=== PATIENT | male | born 1975 | race Caucasian/White ===

== ENCOUNTER → 2024-06-10 14:47 | Outpatient (BNVA) | payer BC, MEDICAID, SELFPAY | PROVIDERS: PCP Family Medicine; Visit Provider Nurse Practitioner | DX: Z12.5 Encounter for screening for malignant neoplasm of prostate (principal); I10 Essential (primary) hypertension | CPT/HCPCS: 80053; 80061; 84443; 85025; G0103 ==

== ENCOUNTER → 2024-06-19 14:24 | Outpatient (BNVA) | payer BC, MEDICAID, SELFPAY | PROVIDERS: PCP Family Medicine; Referring Provider Nurse Practitioner; Visit Provider Nurse Practitioner | DX: R74.8 Abnormal levels of other serum enzymes (principal) | CPT/HCPCS: 80074 ==

== ENCOUNTER 2024-07-09 09:36 | Outpatient (CLI) | payer BC, MEDICAID, SELFPAY ==
--- NOTE | 2024-07-09 09:45 | US_ITS ---
WS: [id number] Complete ABDOMINAL ULTRASOUND HISTORY: K29.00 - Acute gastritis without bleeding COMPARISON: None available. Liver: 20.3 cm in length. Liver is moderately enlarged. Surface of the liver is irregular suggesting hepatocellular disease and possible cirrhosis. No mass. Portal Vein: Normal hepatopetal flow with monophasic waveform. Gallbladder: Normally distended with sludge. No stones identified. No gallbladder wall thickening or edema. CBD: 0.5 cm Pancreas: Not visualized. Right kidney: 10.5 cm x 5.0 x 4.1 cm. Cortex:0.9 cm. Normal size and echogenicity. No hydronephrosis or mass. Left kidney: 9.8 cm x 4.7 cm x 4.3 cm. Cortex: 1.2 cm. Normal size and echogenicity. No hydronephrosis or mass. Spleen: 12.2 cm. Normal size and echogenicity. Aorta and IVC: Unremarkable abdominal aorta and IVC. Small amount of ascites in the upper quadrants. US/US abdomen complete* [id number] Impression: 1. Small amount of gallbladder sludge. No evidence for cholelithiasis or acute cholecystitis. 2. No bile duct dilatation. 3. Moderate hepatomegaly. Surface changes of the liver suggesting cirrhosis al though the liver is not shrunken. 4. No renal obstruction. 5. Small amount of ascites.
== END 2024-07-09 09:37 | disposition home or self-care (01) ==
LOC: RAD 09:37
PROVIDERS: PCP Family Medicine; Visit Provider Nurse Practitioner
DX: K29.00 Acute gastritis without bleeding (principal); R74.8 Abnormal levels of other serum enzymes; R18.8 Other ascites
CPT/HCPCS: 76700

== ENCOUNTER → 2024-08-21 11:30 | Outpatient (BNVA) | payer BC, MEDICAID, SELFPAY | PROVIDERS: PCP Nurse Practitioner; Visit Provider Nurse Practitioner | DX: I10 Essential (primary) hypertension (principal); R33.9 Retention of urine, unspecified; R60.9 Edema, unspecified | CPT/HCPCS: 80053; 83735; 83880 ==

== ENCOUNTER → 2024-09-02 13:12 | Outpatient (BNVA) | payer BC, MEDICAID, SELFPAY | PROVIDERS: PCP Nurse Practitioner; Visit Provider Nurse Practitioner | DX: R60.9 Edema, unspecified (principal); R33.9 Retention of urine, unspecified | CPT/HCPCS: 80053; 83880 ==

== ENCOUNTER 2024-09-23 11:39 | Outpatient (CLI) | payer BC, MEDICAID, SELFPAY ==
--- NOTE | 2024-09-23 12:00 | USCV_ITS ---
Urban Lucas Age: 48 Gender: M : 1975 Exam Date: 09/23/2024 11:53 Ordering Phys: Tami ReillyP MULESER Technologist: Exam Location: [facility] [place] Indication: sob BP: 130 / 80 HR: 76 Rhythm: Sinus Technical Quality: Adequate MEASUREMENTS (Male / Female) Normal Values 2D ECHO LV Diastolic Diameter PLAX 4.0 cm 4.2 - 5.9 / 3.9 - 5.3 cm IVS Diastolic Thickness 1.2 cm 0.6 - 1.0 / 0.6 - 0.9 cm IVS Systolic Thickness 1.4 cm LVPW Diastolic Thickness 1.7 cm 0.6 - 1.0 / 0.6 - 0.9 cm LVPW Systolic Thickness 1.5 cm LV Ejection Fraction 2D Teich 67.8 % LV Ejection Fraction MOD 4C 69.3 % LV Ejection Fraction MOD 2C 68.0 % LV Ejection Fraction 2C AL 67.9 % RA Systolic Volume 4C AL 38.5 ml RA Systolic Volume 4C MOD 36.9 ml M-MODE LA Ao Ratio MM 1.0 AV Cusp Separation MM 2.1 cm DOPPLER AV Peak Velocity 141.0 cm/s LVOT Peak Velocity 119.0 cm/s MV Peak Velocity 97.0 cm/s MV Area PHT 4.0 cm squared Mitral E to A Ratio 1.1 TV Peak Velocity 211.0 cm/s TR Peak Velocity 217.0 cm/s TR Peak Gradient 18.8 mmHg TV Peak E Velocity 84.0 cm/s PV Peak Velocity 120.0 cm/s FINDINGS Left Ventricle Normal left ventricular size and systolic function, EF 68%. No regional wall motion abnormalities. Right Ventricle The right ventricle is normal in size and function. Right Atrium The right atrium is normal in size. Left Atrium The left atrium is normal in size. Mitral Valve Trace mitral valve regurgitation. Aortic Valve No significant abnormalities noted Tricuspid Valve Trace tricuspid valve regurgitation. Estimated pulmonary artery peak systolic pressure 22 mmHg Pulmonic Valve Trace pulmonary valve regurgitation. Pericardium Normal pericardium without effusion. Aorta Normal ascending aorta dimension. IVC The inferior vena cava appears normal. CONCLUSIONS Normal left ventricular size and systolic function, EF 68%. No regional wall motion abnormalities. Trace tricuspid valve regurgitation. Estimated pulmonary artery peak systolic pressure 22 mmHg. Trace pulmonary valve regurgitation. Normal cardiac chamber sizes. No intracardiac shunts by color-flow Doppler examination. There is no pericardial effusion. No similar previous studies are available for comparison Dr Tarsha Porter MD [facility] (Electronically Signed) Final Date: 28 September 2024 18:55 S
== END 2024-09-23 11:40 | disposition home or self-care (01) ==
LOC: RAD 11:39
PROVIDERS: PCP Nurse Practitioner; Visit Provider Nurse Practitioner
DX: R60.9 Edema, unspecified (principal)
CPT/HCPCS: 93306

== ENCOUNTER 2024-10-13 18:19 | Emergency (ER) | payer BC, MEDICAID, SELFPAY ==
[2024-10-13 18:32] VITALS: BP 138/96; PULSE 72; TEMP 36.4; O2SAT 100; BMI 25.3
--- NOTE | 2024-10-13 18:37 | XRR_ITS ---
PROCEDURE INFORMATION: Exam: XR Left Shoulder Exam date and time: 10/13/2024 6:49 PM Age: 48 years old Clinical indication: Injury or trauma; Fall; Blunt trauma (contusions or hematomas); Shoulder; Left TECHNIQUE: Imaging protocol: Radiologic exam of the left shoulder. Views: 2 or more views. COMPARISON: No relevant prior studies available. FINDINGS: Bones/joints: Acute comminuted minimally displaced fracture of the proximal humerus just below the surgical neck. No dislocation. Lungs: Visualized lungs are clear. Soft tissues: Normal. XR/XR shoulder LT min 2V* [id number] IMPRESSION: Acute comminuted fracture of the proximal humerus.
--- NOTE | 2024-10-13 18:55 | ED_ITS ---
HPI - Extremity Problem General: Chief complaint: Extremity Injury, Upper Stated complaint: Fell Shoulder Pain Time Seen by Provider: 10/13/24 18:38 Source: patient Mode of arrival: ambulatory Limitations: no limitations History of Present Illness: 48-year-old male states that he had a fa ll day states he had landed on his left shoulder has pain to his left shoulder he rates a 9 out of 10 pain is much worse with movement. He denies hitting his head denies any loss of consciousness. Associated symptoms: Deny chest pain, fever(s) or rash Related Data Home Medications Medication Instructions Recorded Confirmed furosemide 40 mg tablet (Lasix) 40 mg PO DAILY 09/18/24 09/18/24 Previous Rx's Medication Instructions Recorded lisinopril 10 mg tablet 10 mg PO DAILY #30 tabs 06/10/24 buspirone 5 mg tablet 5 mg PO BID PRN anxiety #30 tabs 07/18/24 hydrocodone 5 mg-acetaminophen 325 1 tab PO Q6H PRN pain #14 tabs 10/13/24 mg tablet Allergies Allergy/AdvReac Type Severity Reaction Status Date / Time No Known Allergies Allergy Verified 10/13/24 18:36 Review of Systems Const: Denies: fever(s), chills, body aches or change in appetite ENMT: Denies: throat pain or dental pain Card: Denies: chest pain Resp: Denies: dyspnea GI: Denies: abdominal pain, nausea, vomiting or diarrhea Musc: Reports: extremity pain; Denies: neck pain or back pain Skin/Breast: Denies: rash Neuro: Denies: headache(s) PFSH ED PFSH: Medical History Ascites of liver Social anxiety disorder Gastritis Hypertension NAYLA (generalized anxiety disorder) Social History Smoking and tobacco/nicotine status: current every day tobacco/nicotine user Alcohol intake: current Alcohol intake frequency: 0-2 Drinks per Day Substance/Drug Use: never Physical Exam Const: COMMON NORMALS: no acute distress, patient oriented x3 and healthy appearing HENMT: COMMON NORMALS: normocephalic and atraumatic HEAD & SCALP: normocephalic and atraumatic Eye: COMMON NORMALS: Equal, round and reactive pupils present and EOMs intact bilaterally PUPIL: Yes Equal, round and reactive pupils present Neck/C-Spine: COMMON NORMALS: full ROM and supple GENERAL: Yes normal visual inspection CERVICAL SPINE: No Cervical spine tenderness Chest: COMMONS NORMALS: normal inspection of the chest Resp: COMMON NORMALS: normal respiratory effort, No retractions, No use of accessory muscles and clear to auscultation bilaterally AUSCULTATION: clear to auscultation bilaterally Cardio: COMMON NORMALS: regular rate, regular rhythm and No murmurs present (Cardio) RATE: regular rate RHYTHM: regular rhythm Extremity: COMMON NORMALS: full ROM NARRATIVE EXTREMITY EXAM: Tenderness noted to left proximal humerus distal pulses intact no signs of dislocation Neuro: COMMON NORMALS: patient oriented x3, moves all extremities and no focal motor deficits Psych: COMMON NORMALS: mental status grossly normal, Normal thought process present and cooperative THOUGHT PROCESS: Normal thought process present Skin: COMMON NORMALS: no rashes or lesions noted and no wounds GENERAL SKIN EXAM: no rashes or lesions noted Course Vital Signs: Vital signs: Vital Signs Temperature 97.6 F 10/13/24 18:32 Pulse Rate 72 10/13/24 18:32 Blood Pressure 138/96 10/13/24 18:32 Pulse Oximetry 100 10/13/24 18:32 Oxygen Delivery Me thod Room Air 10/13/24 18:32 MDM - Extremity (Nontraumatic) Medical Decision Making Patient presents here with a proximal humerus fracture we will place him in a sling will get him follow-up orthopedics will prescribe pain medicine he has no other injuries noted. Medical Records I reviewed the patient's medical records. XR interpretation done by ED provider, pending radiology final review ED provider radiology interpretation(s): X-ray left humerus proximal humerus fracture no dislocation Discharge Plan Discharge Patient Disposition: Home Clinical Impression: Fracture of humerus Condition: Stable Prescriptions: New hydrocodone-acetaminophen 5-325 mg tablet 1 tab PO Q6H PRN (Reason: pain) Qty: 14 0RF No Action lisinopril 10 mg tablet 10 mg PO DAILY Qty: 30 3RF buspirone 5 mg tablet 5 mg PO BID PRN (Reason: anxiety) Qty: 30 0RF furosemide [Lasix] 40 mg tablet 40 mg PO DAILY Discharge Orders: Discharge ED (Routine); Ordered 10/13/24 Ordered By: Adrienne Villarreal Referrals: Tami Reilly FNP [Primary Care Provider] - Discharge Diet: Advance as tolerated Discharge Activity: Resume usual activity Patient Instructions: Arm Fracture in Adults (ED), Opioid Safety Coding Level of Care Code ED System Configuration Specialist for Neris Morris
[2024-10-13] MEDS: HYDROcodone-acetaminophen 7.5-325 mg Tablet 1 TAB PO (19:13)
[2024-10-13] MEDS: HYDROcodone-acetaminophen 5-325 mg Tablet 2 TAB PO (19:43)
--- NOTE | 2024-10-13 19:43 | PC.NURSE ---
patient would not tolerate monitor and stated he could not/would not move his (non injured) arm.
--- NOTE | 2024-10-14 07:16 | DCPLANNER ---
Message sent to ortho for a left humerus fx. from fall
== END 2024-10-13 19:46 | disposition home or self-care (01) ==
PROVIDERS: Emergency Provider Emergency Medicine; PCP Nurse Practitioner
DX: S42.202A Unspecified fracture of upper end of left humerus, initial encounter for closed fracture (principal); Z72.0 Tobacco use; I10 Essential (primary) hypertension; W19.XXXA Unspecified fall, initial encounter
CPT/HCPCS: 73030; 99283

== ENCOUNTER → 2024-10-16 15:27 | Outpatient (BNVA) | payer BC, MEDICAID, SELFPAY | PROVIDERS: PCP Nurse Practitioner; Visit Provider Orthopaedic Surgery | DX: S42.202A Unspecified fracture of upper end of left humerus, initial encounter for closed fracture (principal); W19.XXXA Unspecified fall, initial encounter | CPT/HCPCS: 73060 ==

== ENCOUNTER → 2024-10-22 12:36 | Outpatient (BNVA) | payer BC, MEDICAID, SELFPAY | PROVIDERS: PCP Nurse Practitioner; Visit Provider Internal Medicine | DX: R07.9 Chest pain, unspecified (principal) | CPT/HCPCS: 93005 ==

== ENCOUNTER → 2024-10-23 13:05 | Outpatient (BNVA) | payer BC, MEDICAID, SELFPAY | PROVIDERS: PCP Nurse Practitioner; Visit Provider Orthopaedic Surgery | DX: M25.512 Pain in left shoulder (principal) | CPT/HCPCS: 73030; 73060; 93005 ==

== ENCOUNTER → 2024-11-13 12:49 | Outpatient (BNVA) | payer BC, MEDICAID, SELFPAY | PROVIDERS: PCP Nurse Practitioner; Visit Provider Orthopaedic Surgery | DX: S42.292D Other displaced fracture of upper end of left humerus, subsequent encounter for fracture with routine healing (principal); X58.XXXD Exposure to other specified factors, subsequent encounter | CPT/HCPCS: 73030 ==

== ENCOUNTER → 2024-12-11 13:07 | Outpatient (BNVA) | payer BC, MEDICAID, SELFPAY | PROVIDERS: PCP Nurse Practitioner; Visit Provider Orthopaedic Surgery | DX: S42.292D Other displaced fracture of upper end of left humerus, subsequent encounter for fracture with routine healing (principal); X58.XXXD Exposure to other specified factors, subsequent encounter | CPT/HCPCS: 73030 ==

== ENCOUNTER → 2025-01-20 14:07 | Outpatient (BNVA) | payer BC, MEDICAID, SELFPAY | PROVIDERS: PCP Nurse Practitioner; Visit Provider Orthopaedic Surgery | DX: S42.292D Other displaced fracture of upper end of left humerus, subsequent encounter for fracture with routine healing (principal); X58.XXXD Exposure to other specified factors, subsequent encounter | CPT/HCPCS: 73030 ==

== ENCOUNTER 2025-01-25 00:07 | Emergency (ER) | payer BC, MEDICAID, SELFPAY ==
[2025-01-25 00:11] VITALS: BP 147/93; PULSE 98; RESP 16; TEMP 36.6; O2SAT 98; BMI 24.0
--- NOTE | 2025-01-25 00:31 | CTR_ITS ---
PROCEDURE INFORMATION: Exam: CT Chest With Contrast; Diagnostic Exam date and time: 01/25/2025 12:58 AM Age: 49 years old Clinical indication: Injury or trauma; Abdominal wall; Blunt trauma (contusions or hematomas); Ground level fall. Patient fell against a recliner then onto floor. C/O neck and left abd wall pain. Contusion with hematoma to lateral aspect of lower left abd wall. Patient has known left humeral surgical neck fracture. ; Additional info: Fall right chest and abd pain TECHNIQUE: Imaging protocol: Diagnostic computed tomography of the chest with contrast. Radiation optimization: All CT scans at this facility use at least one of these dose optimization techniques: automated exposure control; mA and/or kV adjustment per patient size (includes targeted exams where dose is matched to clinical indication); or iterative reconstruction. Contrast material: OMNI 350; Contrast volume: 100 ml; Contrast route: INTRAVENOUS (IV); COMPARISON: CT cervical spin wo con* [id number] 01/25/2025 12:56 AM RADIATION DOSE METRICS: Total DLP (mGy-cm): 2677.43 FINDINGS: Lungs: Unremarkable. No consolidation. No masses. Pleural spaces: Unremarkable. No pneumothorax. No pleural effusion. Heart: Unremarkable. No cardiomegaly. No pericardial effusion. Coronary arteries: Coronary artery atherosclerotic calcification. Lymph nodes: Unremarkable. No enlarged lymph nodes. Vasculature: Unremarkable. No aortic aneurysm. Bones/joints: Left humeral neck fracture with surrounding callus formation, likely chronic Soft tissues: See Bones/joints finding. PROCEDURE INFORMATION: Exam: CT Abdomen And Pelvis With Contrast Exam date and time: 01/25/2025 12:58 AM Age: 49 years old Clinical indication: Injury or trauma; Abdominal wall; Blunt trauma (contusions or hematomas); Ground level fall. Patient fell against a recliner then onto floor. C/O neck and left abd wall pain. Contusion with hematoma to lateral aspect of lower left abd wall. Patient has known left humeral surgical neck fracture. ; Additional info: Fall right chest and abd pain TECHNIQUE: Imaging protocol: Computed tomography of the abdomen and pelvis with contrast. Radiation optimization: All CT scans at this facility use at least one of these dose optimization techniques: automated exposure control; mA and/or kV adjustment per patient size (includes targeted exams where dose is matched to clinical indication); or iterative reconstruction. Contrast material: OMNI 350; Contrast volume: 100 ml; Contrast route: INTRAVENOUS (IV); COMPARISON: US abdomen complete* [id number] 07/09/2024 10:04 AM RADIATION DOSE METRICS: Total DLP (mGy-cm): 2677.43 FINDINGS: Liver: Normal. No mass. Gallbladder and biliary ducts: Normal. No calcified stones. No ductal dilation. Pancreas: Normal. No ductal dilation. Spleen: Normal. No splenomegaly. Adrenal glands: Normal. No mass. Kidneys and ureters: Normal. No hydronephrosis. Stomach and bowel: Unremarkable. No obstruction. No mucosal thickening. Appendix: No evidence of appendicitis. Intraperitoneal space: Unremarkable. No free air. No significant fluid collection. Vasculature: Unremarkable. No abdominal aortic aneurysm. Lymph nodes: Unremarkable. No enlarged lymph nodes. Urinary bladder: Unremarkable as visualized. Reproductive: Unremarkable as visualized. Bones/joints: Unremarkable. No acute fracture. Soft tissues: 5.3 cm subcutaneous hematoma is seen over the left lateral pelvis with associated subcutaneous edema. CT/CT chest abdpel w/*[id number] IMPRESSION: 1. Left humeral neck fracture with surrounding callus formation, likely chronic 2. Coronary artery atherosclerotic calcification. IMPRESSION: 5.3 cm subcutaneous hematoma is seen over the left lateral pelvis with associated subcutaneous edema.
--- NOTE | 2025-01-25 00:31 | CTR_ITS ---
PROCEDURE INFORMATION: Exam: CT Cervical Spine Without Contrast Exam date and time: 01/25/2025 12:56 AM Age: 49 years old Clinical indication: Injury or trauma; Blunt trauma; Ground level fall. Patient fell against a recliner then onto floor. C/O neck and left abd wall pain. Contusion with hematoma to lateral aspect of lower left abd wall. Patient has known left humeral surgical neck fracture. ; Additional info: Fall neck pain TECHNIQUE: Imaging protocol: Computed tomography of the cervical spine without contrast. Radiation optimization: All CT scans at this facility use at least one of these dose optimization techniques: automated exposure control; mA and/or kV adjustment per patient size (includes targeted exams where dose is matched to clinical indication); or iterative reconstruction. COMPARISON: CT head wo con* [id number] 01/25/2025 12:53 AM RADIATION DOSE METRICS: Total DLP (mGy-cm): 294.47 FINDINGS: Bones: Craniocervical and facet alignment is preserved. Vertebral body heights are maintained. No acute fracture. Small disc osteophyte complexes at C4-C5, C5-C6, and C6-C7. At least moderate spinal canal narrowing at C5-C6 and mild-moderate spinal canal narrowing at C4-C5. There is also severe neural foraminal stenosis on the right at C5-C6. Lungs: Biapical pleural-parenchymal scarring and mild paraseptal emphysematous change. Soft tissues: Unremarkable. CT/CT cervical spin wo con* [id number] IMPRESSION: No acute fracture or traumatic malalignment.
--- NOTE | 2025-01-25 00:31 | CTR_ITS ---
PROCEDURE INFORMATION: Exam: CT Head Without Contrast Exam date and time: 01/25/2025 12:53 AM Age: 49 years old Clinical indication: Injury or trauma; Blunt trauma (contusions or hematomas); Ground level fall. Patient fell against a recliner then onto floor. C/O neck and left abd wall pain. Contusion with hematoma to lateral aspect of lower left abd wall. Patient has known left humeral surgical neck fracture. ; Additional info: Fall head inj TECHNIQUE: Imaging protocol: Computed tomography of the head without contrast. Radiation optimization: All CT scans at this facility use at least one of these dose optimization techniques: automated exposure control; mA and/or kV adjustment per patient size (includes targeted exams where dose is matched to clinical indication); or iterative reconstruction. COMPARISON: No relevant prior studies available. RADIATION DOSE METRICS: Total DLP (mGy-cm): 972.54 FINDINGS: Brain: No acute intracranial hemorrhage. No territorial region of loss of harris-white differentiation. No extra-axial collection. No mass effect or midline shift. Cerebral ventricles: No acute hydrocephalus. Paranasal sinuses: Visualized sinuses are well-aerated. No fluid levels. Mastoid air cells: Visualized mastoid air cells are well aerated. Orbital cavities: No acute abnormality of the visualized orbits. Bones: No acute calvarial fracture. Soft tissues: No acute abnormality. CT/CT head wo con* [id number] IMPRESSION: No acute intracranial hemorrhage or acute calvarial fracture.
[2025-01-25 00:57] LABS: Basophils # 0.1 10^3/uL (0.0-0.1); Eosinophils # 0.1 10^3/uL (0.0-0.8); Eosinophils % 1.3 %; Hematocrit 39.5 % (37-53); Lymphocytes # 1.5 10^3/uL (0.8-4.8); Lymphocytes % 29.4 %; Mean Corpuscular HGB Conc 34.2 g/dL (30-55); Mean Corpuscular Hemoglobin 30.6 pg (27-33); Mean Corpuscular Volume 89.6 fl (82-101); Mean Platelet Volume 8.7 fL (7.4-10.4); Monocytes # 0.5 10^3/uL (0.2-0.9); Monocytes % 9.2 %; Neutrophils # 3.07 10^3/uL (1.8-7.7); Neutrophils % 58.9 %; Nucleated Red Blood Cells % 0 %; Platelet Count 157 10^3/cmm (157-399); Red Blood Count 4.41 10^6/uL (3.85-5.65); Red Cell Distribution Width 17.9 % (12.1-15.1); White Blood Count 5.21 10^3/uL (3.29-11.43)
[2025-01-25] MEDS: iohexol 350 mg/mL 500 mL Btl (per mL) IV (01:01)
[2025-01-25 01:09] LABS: INR 1.05 (0.8-1.2)
[2025-01-25 01:10] LABS: Partial Thromboplastin Time 30.1 SECONDS (23.9-36.7)
[2025-01-25 01:18] LABS: Alanine Aminotransferase 37 U/L (0-41); Albumin Level 4.2 g/dL (3.5-5.2); Alcohol Level 162 mg/dL (0-10); Alkaline Phosphatase 114 U/L (40-130); Anion Gap 18.8 (5-19); Aspartate Amino Transferase 79 U/L (0-40); Blood Urea Nitrogen 15 mg/dL (6-20); Calcium 8.8 mg/dL (8.5-10.5); Carbon Dioxide 22 mmol/L (22-29); Chloride 101 mmol/L (98-107); Creatine Phosphokinase 109 U/L (39-308); Creatinine Clr Calc Pharmacy 125.6605; Globulin 2.6 g/dL (1.3-4.6); Glomerular Filtration Rate 103.2 mL/min (90-130); Glucose 150 mg/dL (65-115); Lactic Sepsis W/Reflex 4.2 mmol/L (0.5-2.2); Osmolality Calculated 290 mOsm/kg (285-295); Potassium 3.8 mmol/L (3.5-5.1); Sodium 138 mmol/L (136-145); Total Bilirubin 0.7 mg/dL (0.15-1.2); Total Protein 6.8 g/dL (6.6-8.7)
--- NOTE | 2025-01-25 01:44 | ED_ITS ---
HPI - Abdominal Pain 2 General: Chief Complaint: Abdominal Pain Stated Complaint: fall L shoulder, & large swollen spot on left side Time Seen by Provider: 01/25/25 00:33 History of Present Illness: 49-year-old male patient with a history of alcohol use and alcoholic liver disease. He presents with left-sided abdominal wall pain following a fall at home. He evidently fell over the side of a couch. He complains of a headache, because he hit his head, some neck pain, and left flank pain. No vomiting. No fever. Related Data Home Medications ?Medication ?Instructions ?Recorded ?Confirmed furosemide 40 mg tablet (Lasix) 40 mg PO DAILY 4 01/20/25 spironolactone 25 mg tablet 25 mg PO DAILY 10/23/24 Previous Rx's ?Medication ?Instructions ?Recorded buspirone 5 mg tablet 5 mg PO BID PRN anxiety #30 tabs 07/18/24 Compression sleeve for right arm #1 ea 10/23/24 lisinopril 10 mg tablet 10 mg PO DAILY #30 tabs 11/02 01/23 hydrocodone 10 mg-acetaminophen 1 tab PO Q12H PRN pain 10 days #20 01/20/25 325 mg tablet tabs Allergies Allergy/AdvReac Type Severity Reaction Status Date / Time No Known Allergies Allergy Verified 12/11/24 13:14 [facility] ED 2 PFSH: Medical History Ascites of liver Social anxiety disorder Gastritis Hypertension NAYLA (generalized anxiety disorder) Social History Smoking and tobacco/nicotine status: unknown if used tobacco/nicotine Alcohol intake: current Alcohol intake frequency: 0-2 Drinks per Day Substance/Drug Use: never Physical Exam 2 Const: COMMON NORMALS: no acute distress GENERAL APPEARANCE: cooperative; not ill appearing and not frail appearing HENMT: COMMON NORMALS: normocephalic, atraumatic and Normal external nose present HEAD & SCALP: normocephalic and atraumatic FACE & SINUS: normal facial exam and face symmetric NOSE: Normal external nose present Eye: COMMON NORMALS: Equal, round and reactive pupils present and EOMs intact bilaterally PUPIL: Yes Equal, round and reactive pupils present Neck/C-Spine: GENERAL: Yes trachea midline Chest: CHEST: Yes Symmetrical chest wall rise Resp: COMMON NORMALS: normal respiratory effort, No retractions, No use of accessory muscles and clear to auscultation bilaterally AUSCULTATION: clear to auscultation bilaterally Cardio: COMMON NORMALS: regular rate and regular rhythm RATE: regular rate RHYTHM: regular rhythm GI: COMMON NORMALS: Normal to inspection, nondistended, normoactive bowel sounds present OTHER: Left-sided abdominal wall hematoma. Tender to palpation. No active bleeding. Ecchymosis is present. Extremity: COMMON NORMALS: no pedal edema Neuro: BRITTNEE COMA SCALE: document GCS findings Brittnee coma scale eye opening: Spontaneous Brittnee coma scale verbal response: Orientated Brittnee coma scale motor response: Obey commands Brittnee coma scale total score: 15 S ENSORY EXAM: Yes extremities (intact) Psych: COMMON NORMALS: speech normal SPEECH: Yes normal speech Skin: COMMON NORMALS: no rashes or lesions noted GENERAL SKIN EXAM: no rashes or lesions noted Course 2 Vital Signs: Vital signs: Vital Signs Temperature 97.8 F 01/25/25 00:11 Pulse Rate 98 01/25/25 00:11 Respiratory Rate 16 01/25/25 00:11 Blood Pressure 147/93 01/25/25 00:11 Pulse Oximetry 98 01/25/25 00:11 Oxygen Delivery Me thod Room Air 01/25/25 00:11 MDM - Abdominal Pain Medical Decision Making Labs are essentially not remarkable, except for a lactic acid of 4.5, and alcohol level of 162. These are likely related. CRP is 3. Other liver enzymes are essentially not remarkable. Platelet count is normal. Head and C-spine CTs are negative. Chest CT is negative. There is a left humeral neck fracture that is old, with callus formation present. Bili CT shows a 5.3 cm subcutaneous hematoma with some associated subcutaneous edema. No active bleeding noted. No solid organ injury or internal hemorrhage. He is stable. He is allowed discharge. Lab Data 01/25/25 00:48 01/25/25 00:48 Labs/Radiology: Radiology Impressions Cervical Spine CT 01/25/25 00:31 IMPRESSION: No acute fracture or traumatic malalignment. Chest/Abdomen/Pelvis CT 01/25/25 00:31 IMPRESSION: 1. Left humeral neck fracture with surrounding callus formation, likely chronic 2. Coronary artery atherosclerotic calcification. IMPRESSION: 5.3 cm subcutaneous hematoma is seen over the left lateral pelvis with associated subcutaneous edema. Head CT 01/25/25 00:31 IMPRESSION: No acute intracranial hemorrhage or acute calvarial fracture. Laboratory Results WBC 5.21 10^3/uL (3.29-11.43) 01/25/25 00:48 RBC 4.41 10^6/uL (3.85-5.65) 01/25/25 00:48 Hgb 13.50 g/dL (11.27-16.99) 01/25/25 00:48 Hct 39.5 % (37-53) 01/25/25 00:48 MCV 89.6 fl (82-101) 01/25/25 00:48 MCH 30.6 pg (27-33) 01/25/25 00:48 MCHC 34.2 g/dL (30-55) 01/25/25 00:48 RDW 17.9 % (12.1-15.1) H 01/25/25 00:48 Plt Count 157 10^3/cmm (157-399) 01/25/25 00:48 MPV 8.7 fL (7.4-10.4) 01/25/25 00:48 Neut % (Auto) 58.9 % 01/25/25 00:48 Lymph % (Auto) 29.4 % 01/25/25 00:48 Mcdonald % (Auto) 9.2 % 01/25/25 00:48 Eos % (Auto) 1.3 % 01/25/25 00:48 Baso % (Auto) 1.0 % 01/25/25 00:48 Neut # (Auto) 3.07 10^3/uL (1.8-7.7) 01/25/25 00:48 Lymph # (Auto) 1.5 10^3/uL (0.8-4.8) 01/25/25 00:48 Mcdonald # (Auto) 0.5 10^3/uL (0.2-0.9) 01/25/25 00:48 Eos # (Auto) 0.1 10^3/uL (0.0-0.8) 01/25/25 00:48 Baso # (Auto) 0.1 10^3/uL (0.0-0.1) 01/25/25 00:48 Nucleated RBC % (auto) 0 % 01/25/25 00:48 Nucleated RBCs # 0.0 /100WBC 01/25/25 00:48 PT 14.40 SECONDS (12.1-14.9) 01/25/25 00:48 INR 1.05 (0.8-1.2) 01/25/25 00:48 APTT 30.1 SECONDS (23.9-36.7) 01/25/25 00:48 Sodium 138 mmol/L (136-145) 01/25/25 00:48 Potassium 3.8 mmol/L (3.5-5.1) 01/25/25 00:48 Chloride 101 mmol/L (98-107) 01/25/25 00:48 Carbon Dioxide 22 mmol/L (22-29) 01/25/25 00:48 Anion Gap 18.8 (5-19) 01/25/25 00:48 BUN 15 mg/dL (6-20) 01/25/25 00:48 Creatinine 0.8 mg/dL (0.7-1.2) 01/25/25 00:48 GFR Calculation 103.2 mL/min (90-130) 01/25/25 00:48 Glucose 150 mg/dL (65-115) H 01/25/25 00:48 Calculated Osmolality 290 mOsm/kg (285-295) 01/25/25 00:48 Lactic Acid 4.2 mmol/L (0.5-2.2) H* 01/25/25 00:48 Calcium 8.8 mg/dL (8.5-10.5) 01/25/25 00:48 Total Bilirubin 0.7 mg/dL (0.15-1.2) 01/25/25 00:48 AST 79 U/L (0-40) H 01/25/25 00:48 ALT 37 U/L (0-41) 01/25/25 00:48 Alkaline Phosphatase 114 U/L (40-130) 01/25/25 00:48 Creatine Kinase 109 U/L (39-308) 01/25/25 00:48 C-Reactive Protein 3.0 mg/L (0.0-4.9) 01/25/25 00:48 Total Protein 6.8 g/dL (6.6-8.7) 01/25/25 00:48 Albumin 4.2 g/dL (3.5-5.2) 01/25/25 00:48 Globulin 2.6 g/dL (1.3-4.6) 01/25/25 00:48 Ethyl Alcohol 162 mg/dL (0-10) H 01/25/25 00:48 All radiology interpretation(s) finalized by discharge Discharge Plan Discharge Patient Disposition: Home Clinical Impression: Abdominal wall hematoma Qualifiers: Encounter type: initial encounter Qualified Code(s): S30.1XXA - Contusion of abdominal wall, initial encounter Condition: Stable Prescriptions: No Action lisinopril 10 mg tablet 10 mg PO DAILY Qty: 30 3RF buspirone 5 mg tablet 5 mg PO BID PRN (Reason: anxiety) Qty: 30 0RF furosemide [Lasix] 40 mg tablet 40 mg PO DAILY spironolactone 25 mg tablet 25 mg PO DAILY hydrocodone-acetaminophen 10-325 mg tablet 1 tab PO Q12H PRN (Reason: pain) 10 Days Qty: 20 0RF (DME) Compression sleeve for right arm See Rx Instructions .Route .MEDSUPPLY Qty: 1 0RF Rx Instructions: As directed Discharge Orders: Discharge ED (Routine); Ordered 01/25/25 Ordered By: Serafin Smith Referrals: Tami Reilly FNP [Primary Care Provider] - Patient Instructions: Hematoma (ED), Opioid Safety, Pain Management Activity Restrictions/Additional Instructions: Ice for the first 48 hours. Heat may help after that. See your doctor for follow-up next week. Call Sunday for an appointment. Return for fever, other concerning symptoms. Print Language: Faroese Coding Level of Care Code ED Rod Straightener for Neris Morris
[2025-01-25] MEDS: oxyCODONE-APAP 5-325 mg Tablet 2 TAB PO (02:28)
[2025-01-25 02:30] VITALS: BP 144/80; PULSE 80; RESP 18; O2SAT 98
[2025-01-25 02:41] LABS: Reflex Lactate Order REFLEX LACTIC ORDERD
== END 2025-01-25 02:31 | disposition home or self-care (01) ==
PROVIDERS: Emergency Provider Emergency Medicine; PCP Nurse Practitioner
DX: S30.1XXA Contusion of abdominal wall, initial encounter (principal); I10 Essential (primary) hypertension; W19.XXXA Unspecified fall, initial encounter
CPT/HCPCS: 36415; 70450; 71260; 72125; 74177; 80053; 80307; 82550; 83605; 85025; 85610; 85730; 86140; 86850; 86900; 99285; J9999

== ENCOUNTER 2025-04-06 02:24 | Emergency (ER) | payer BC, MEDICAID, SELFPAY ==
--- OUTSIDE RECORDS SUMMARY | 2024-08-19 08:50 | XMS_ITS ---
Author Organization [facility] Address [address] [place] [address] Care Team Providers Care Senior Interactive Producer Name Role Phone Karri Gandhi Dawood [phone] Allergies Allergen (clinical drug ingredient) Drug/Non Drug Allergy documented on EMR Reaction Allergy Type Onset Date Status shrimp allergenic extract Shrimp (Diagnostic) nausea and vomiting Drug Allergy Active Non-steroidal anti-inflammatory agent (FN) NSAIDs stomach upset Drug Allergy Active Penicillin rash Drug Allergy Active REASON FOR VISIT lumbar SCS trial Medications Medication SIG (Take, Route, Frequency, Duration) Notes Start Date End Date Status Clindamycin HCl 300 MG 1 capsule Orally every 12 hrs for 7 days Post SCS Trial 08/19/2024 08/26/2024 Active Encounters Encounter Location Date Provider Diagnosis [facility] [place] [address] [place] [address] 08/19/2024 Karri Gandhi Chronic pain disorder G89.4 Assessments Encounter Date Diagnosis (ICD Code) Assessment Notes Treatment Notes Treatment Clinical Notes Section Notes 08/19/2024 Chronic pain disorder (ICD-10 - G89.4) 08/19/2024 Other Plan Of Treatment Medication Medication Name Sig Start Date Stop Date Notes Clindamycin HCl 300 MG 1 capsule Orally every 12 hrs for 7 days 08/19/2024 08/26/2024 Post SCS Trial Progress Notes * OBDULIO BUTLER II PDOB:[birth year] (49 yo M)Acc No.[id number]:08/19/2024 Patient: Carrillo ALMENDAREZ OBDULIO SALMON Provider: Chaim Gandhi D.O. 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 lumbar SCS trial. * Medical History: Melanie franco:Tobacco user (finding) , Status :: Active. * Allergies: P enicillin: rash, NSAIDs: stomach upset, Shrimp (Diagnostic): nausea and vomiting. Objective: * Vitals: Assessment: * Assessment: 1. C hronic pain disorder - G89.4 (Primary) Plan: * Treatment: Forms: * Billing Information: * Visit Code: * Procedure Codes: * Electronic signature of Karri Gandhi DO on 04/06/2025 at 02:32 AM CDT Sign off status: Pending * Provider: Chaim Gandhi D.O. Date: 10/19/2023 Generated for Elpidio perez/Litzy/Lisbeth on: 0 04/06/2025 02:32 AM CDT History and Physical Notes * HPI (History of Present Illness) Category Sub-Category Detail Notes Category Not es Right shoulder Provider Note Colonoscopy Mammogram Bone Mineral Density Test
[2025-04-06] VITALS (11 sets, daily range): BP systolic 115–150; BP diastolic 74–99; PULSE 67–87; RESP 13–18; TEMP 36.6–36.9; O2SAT 95–99; BMI 24.0
--- OUTSIDE RECORDS SUMMARY | 2025-04-06 02:32 | XMS_ITS | Clinical Summary ---
Author Organization [facility] Address [address] [facility] Attn: Epic Prelude ADT MORTEZA DAVISON [address] Care Team Providers Care Quenching Machine Operator Name Role Phone Unavailable Primary Care Provider Unavailabl e Allergies No known active allergies Medications busPIRone (BUSPAR) 5 mg tablet Take 5 mg by mouth 2 times daily. PRN 4 Active IBUPROFEN ORAL Take by mouth. Active spironolactone (ALDACTONE) 100 mg tablet Take 1 Tablet (100 mg) by mouth daily. 30 Tablet 6 4 Active furosemide (LASIX) 40 mg tablet Take 1 Tablet by mouth daily. 5 Active HYDROcodone-ilia taminophen (NORCO) 10-325 mg Tablet Take 1 Tablet by mouth every 6 hours as needed for Pain. 5 Active simethicone 125 mg Tablet, Chewable Take 1 tablet after completing the first half of bowel prep. Take 2 tablets after completing the second half of bowel prep. 3 Tablet 5 Active lisinopriL (PRINIVIL) 10 mg tablet Take 1 Tablet by mouth daily. 5 Active Active Problems No known active problems Encounters Date Type Department Care Team Description 03/24/2025 External Device Data [facility] ABSTRACTION Provider, Abstract 03/18/2025 External Device Data [facility] ABSTRACTION Provider, Abstract 03/17/2025 External Device Data [facility] ABSTRACTION Provider, Abstract 02/19/2025 External Device Data [facility] ABSTRACTION Provider, Abstract 02/19/2025 External Device Data [facility] ABSTRACTION Provider, Abstract 02/18/2025 External Device Data [facility] ABSTRACTION Provider, Abstract 02/17/2025 External Device Data [facility] ABSTRACTION Provider, Abstract 02/03/2025 External Device Data [facility] ABSTRACTION Provider, Abstract 01/13/2025 External Device Data [facility] ABSTRACTION Provider, Abstract from Last 3 Months Social History Tobacco Use Types Packs/Day Years Used Date Smoking Tobacco: Every Day Cigarettes Tobacco Cessation:Ready to Q uit: Not Asked; Counseling Given: Not Answered Alcohol Use Standard Drinks/Week Comments Yes 0 (1 standard drink = 0.6 oz pur e alcohol) daily drinker Feeling Safe Answer Date Recorded Are you in a relationship wi th someone who hurts you emotionally and/or physically? 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 Gender Identity Not on file Sexual Orientation Not on file Last Filed Vital Signs Vital Sign Reading Time Taken Comments Blood Pressure 138/68 12/23/2024 1:50 PM CDT Pulse 64 12/23/2024 1:50 PM CDT Temperature 36.9 C (98.4 F) 08/18/2024 1:31 PM TRAINING AND DEVELOPMENT OFFICER Respiratory Rate 18 11/14/2024 1:28 PM TRAINING AND DEVELOPMENT OFFICER Oxygen Saturation 99% 11/14/2024 1:32 PM TRAINING AND DEVELOPMENT OFFICER Inhaled Oxygen Concentration - - Weight 83 kg (183 lb) 12/23/2024 1:50 PM CDT Height 182.9 cm (6') 12/23/2024 1:50 PM CDT Body Mass Index 24.82 12/23/2024 1:50 PM CDT Plan of Treatment Upcoming Encounters Date Type Department Care Team (Late st Contact Info) Description 07/29/2025 2:30 PM CDT Office [facility] [address] [facility] [address] [place] [address] Homero Manzano MD [address] [facility] [address] [place] [id number] Health Maintenance Due Date Last Done Comments DTAP/TDAP/TD VACCINES (1 - Tdap) 1995 HEPATITIS B VACCINES (1 of 3 - 19+ 3-dose series) 1995 FIT-DNA Q 3 years 2021 FIT/FOBT Q 1 year 2021 Flex Sig/CT Colonography Q 5 years 2021 INFLUENZA VACCINE (#1) 2025 COLORECTAL SCREENING 11/14/2034 11/14/2024, 11/14/19 Colorectal Cancer Screening 11/14/2034 Procedures Procedure Name Priority Date/Time Associated Diagnosis Comments COLONOSCOPY REPORT 11/14/2024 1: 18 PM TRAINING AND DEVELOPMENT OFFICER from Last 3 Months or Most Recently Relevant to Health Maintenance Results * COLONOSCOPY REPORT (11/14/2024 1:18 PM TRAINING AND DEVELOPMENT OFFICER) Narrative Procedure Note Dez Munoz DO - 11/14/2024 1:18 PM CST [facility] GI Patient Name: Urban Lucas Procedure Date: 11/14/2024 Date of : 1975 Admit Type: Outpatient Age: 48 Attending MD: Dez Munoz DO, Procedure: Colonoscopy with cold snare and bx Indications: Screening for colorectal malignant neoplasm Providers: Dez Munoz DO Referring MD: Tami Reilly NP Medicines: Propofol per Anesthesia Complications: No immediate complications. Procedure: Pre-Anesthesia Assessment: - Prior to the procedure, a History and Physical was performed, and patient medications and allergies were reviewed. The patient's tolerance of previous anesthesia was also reviewed. The risks and benefits of the procedure and the sedation options and risks were discussed with the patient. All questions were answered, and informed consent was obtained. Prior Anticoagulants: The patient has taken no anticoagulant or antiplatelet agents. ASA Grade Assessment: III - A patient with severe systemic disease. After reviewing the risks and benefits, the patient was deemed in satisfactory condition to undergo the procedure. After I obtained informed consent, the scope was passed under direct vision. Throughout the procedure, the patient's blood pressure, pulse, and oxygen saturations were monitored continuously. The Colonoscope was introduced through the anus and advanced to the cecum, identified by appendiceal orifice and ileocecal valve. The colonoscopy was performed without difficulty. The patient tolerated the procedure well. The quality of the bowel preparation was excellent. Estimated Blood Loss: Estimated blood loss: none. Findings: 7 mm sigmoid colon polyp removed using the cold snare In the rectum diffuse inflammation was seen b iopsies obtained to rule out IBD Recommendation: - Continue present medications. - High fiber diet. - Repeat colonoscopy in 5 years. Dez Munoz DO 11/14/2024 1:18:12 PM This report has been signed electronically. Number of Addenda: 0 Note Initiated On: 11/14/2024 11:57 AM Scope Withdrawal Time 0 hours 7 minutes 48 seconds Scope In: 12:56:57 PM Scope Out: 1:08:27 PM Patient Profile: This is a 48 year old male. [address] [place] [address] Dez Munoz DO GI PROCEDURE ORDERABLES Final Result from Last 3 Months or Most Recently Relevant to Health Maintenance [place] [place] [address] [place] [address]
--- OUTSIDE RECORDS SUMMARY | 2025-04-06 02:32 | XMS_ITS | Clinical Summary ---
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 Gender Identity Not on file Sexual Orientation Not on file Last Filed Vital Signs Vital Sign Reading Time Taken Comments Blood Pressure 139/98 12/24/2018 3:59 PM CDT Pulse 72 12/24/2018 3:59 PM CDT Temperature - - Respiratory Rate 16 12/24/2018 3:59 PM CDT Oxygen Saturation - - Inhaled Oxygen Concentration - - Weight 101.6 kg (224 lb) 12/24/2018 3:59 PM CDT Height 182.9 cm (6') 12/24/2018 3:59 PM CDT Body Mass Index 30.38 12/24/2018 3:59 PM CDT Plan of Treatment Health Maintenance Due Date Last Done Comments DTAP/TDAP/TD VACCINES (1 - Tdap) 1995 HEPATITIS B VACCINES (1 of 3 - 19+ 3-dose series) 11/01 COLORECTAL SCREENING 2021 Colorectal Cancer Screening 2021 FIT-DNA Q 3 years 2021 FIT/FOBT Q 1 year 2021 Flex Sig/CT Colonography Q 5 years 2021 INFLUENZA VACCINE (#1) 2025 Insurance [employer]
--- OUTSIDE RECORDS SUMMARY | 2025-04-06 02:32 | XMS_ITS | Patient Health Record ---
Author Organization [facility] Address [address] [place] [address] Care Team Providers Care Typewriter Ribbon Winder Name Role Phone Karri Gandhi Unavailable [phone] Allergies Allergen (clinical drug ingredient) Drug/Non Drug Allergy documented on EMR Reaction Allergy Type Onset Date Status shrimp allergenic extract Shrimp (Diagnostic) nausea and vomiting Drug Allergy Active Non-steroidal anti-inflammatory agent (FN) NSAIDs stomach upset Drug Allergy Active Penicillin rash Drug Allergy Active Reason For Referral No Information Problems Problem Type SNOMED Code ICD Code Onset Dates Problem Status W/U Status Risk Notes Problem Chronic pain syndrome (289063984) Chronic pain disorder (G89.4) Active confirmed Problem Failed back syndrome (23523111) Failed back syndrome (M96.1) Active confirmed Assessments Encounter Date Diagnosis (ICD Code) Assessment Notes Treatment Notes Treatment Clinical Notes Section Notes 08/19/2024 Other Plan Of Treatment No Information Insurance Providers Payer Name Payer Address Payer Phone Subscriber Number Group Number Insured Name Patient Relationship to Insured Coverage Start Date Coverage End Date [employer] [address] [place] [phone] [id number] OBDULIO BUTLER II Self - patient is the insured Medical (General) History Medical History History ICD Code Problem:Tobacco user (finding) , Status :: Active
--- OUTSIDE RECORDS SUMMARY | 2025-04-06 02:32 | XMS_ITS | Encounter Summary ---
Author Organization [facility] Address [address] [place] [address] Care Team Providers Care Robotic Maintenance Technician Name Role Phone Unavailable Primary Care Provider Unavailabl e Encounter Details Date Type Department Care Team (Latest Contact Info) Description 12/20/2018 Ancillary Orders [facility] [place] [address] [place] [address] Huey Ragland MD [address] [facility] [place] [address] Acute pain of right shoulder; Encounter related to worker's compensation claim Social History Tobacco Use Types Packs/Day Years Used Date Smoking Tobacco: Every Day Sex and Gender Information Value Date Recorded Sex Assigned at Not on file Legal Sex 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 Exam: XR SHOULDER 2+ VW RIGHT Date/Time of Exam: 12/20/2018 11:18 AM Reason For Exam: See Diagnosis. Diagnosis: Acute pain of right shoulder; Encounter related to worker's compensation claim. Comparison: Right shoulder radiographs 11/05/2018. Findings: AP internal and external rotation views of the shoulder demonstrate intraarticular contrast of the glenohumeral joint following gadolinium arthrography. No extravasation of intraarticular contrast into the subacromial/subdeltoid bursa is identified. No significant joint space loss or productive change is identified. Impression: 1. Status post gadolinium arthrography of the glenohumeral joint. Please see shoulder MRa results of 12/20/2018.. Narrative Procedure Note Carrillo Arnett MD - 12/20/2018 IMPRESSION: Please see below. Exam: XR SHOULDER 2+ VW RIGHT Date/Time of Exam: 12/20/2018 11:18 AM Reason For Exam: See Diagnosis. Diagnosis: Acute pain of right shoulder; Encounter related to worker's compensation claim. Comparison: Right shoulder radiographs 11/05/2018. Findings: AP internal and external rotation views of the shoulder demonstrate intraarticular contrast of the glenohumeral joint following gadolinium arthrography. No extravasation of intraarticular contrast into the subacromial/subdeltoid bursa is identified. No significant joint space loss or productive change is identified. Impression: 1. Status post gadolinium arthrography of the glenohumeral joint. Please see shoulder MRa results of 12/20/2018.. Huey Ragland MD DIAGNOSTIC IMAGING ORDERABLES Final Result documented in this encounter Visit Diagnoses Diagnosis Acute pain of right shoulder Encounter related to worker's compensation claim Acute pain of right shoulder Encounter related to worker's compensation claim documented in this encounter
--- NOTE | 2025-04-06 03:35 | CTR_ITS ---
PROCEDURE INFORMATION: Exam: CT Neck With Contrast Exam date and time: 04/06/2025 3:51 AM Age: 49 years old Clinical indication: Mass, lump, or swelling in neck; Severe lower lip and left mandibular swelling. ; Additional info: Lower lip and jaw swelling TECHNIQUE: Imaging protocol: Computed tomography of the neck with contrast. Radiation optimization: All CT scans at this facility use at least one of these dose optimization techniques: automated exposure control; mA and/or kV adjustment per patient size (includes targeted exams where dose is matched to clinical indication); or iterative reconstruction. Contrast material: OMNI 350; Contrast volume: 100 ml; Contrast route: INTRAVENOUS (IV); COMPARISON: CT cervical spin wo con* [id number] 01/25/2025 12:56 AM RADIATION DOSE METRICS: Total DLP (mGy-cm): 187.82 FINDINGS: Salivary glands: Normal. Glands are normal in size. Pharynx: Unremarkable. No significant tonsillar enlargement. Larynx: Unremarkable. Epiglottis is normal. Thyroid: Normal. No enlarged or calcified nodules. Trachea: Visualized trachea is unremarkable. Lungs: 6.2 mm indeterminate left apical pulmonary nodule. Lymph nodes: Unremarkable. No lymphadenopathy. Bones/joints: Unremarkable. No acute fracture. Soft tissues: Severe diffuse induration and swelling of the lips, lower greater than upper, with extension into the left inferolateral face. Skin thickening and subcutaneous fat stranding are present. No drainable fluid collection is seen to suggest an abscess. CT/CT neck w con* [id number] IMPRESSION: 1. Findings most consistent with severe perioral and left inferolateral facial cellulitis without evidence of drainable abscess. 2. 6.2 mm indeterminate left apical pulmonary nodule. For patients at low risk (minimal or absent history of smoking and of other known risk factors), recommend CT Chest at 6-12 months, then consider CT Chest at 18-24 months. For patients at high risk (history of smoking or of other known risk factors), recommend CT Chest at 6-12 months, then CT Chest at 18-24 months. (Reference: [place]) References: [place]etta Soriano et al. Guidelines for Management of Incidental Pulmonary Nodules Detected on CT Images: From the Fleischner Society 2017. Radiology. 2017;284(1):228-243.
--- NOTE | 2025-04-06 03:41 | W.ED.DENTAL ---
HPI - Dental/Oral General: Chief complaint: Dental/Oral Stated complaint: Swollen bottom lip getting worse Time Seen by Provider: 04/06/25 03:24 History of Present Illness: 49-year-old male patient who complains of left-sided mainly jaw swelling that over the course of the last couple of hours has spread into his lips, particularly his lower lip. He denies significant tooth pain prior to this happening. Currently, he complains of fullness stinging sensation in his lower lip. He is not short of breath. He is not having trouble swallowing. No fever. No vomiting. No cough. He does take lisinopril, and has done so for the last 6 months or more. Related Data Home Medications ?Medication ?Instructions ?Recorded ?Confirmed furosemide 40 mg tablet (Lasix) 40 mg PO DAILY 09/18/24 01/20/25 spironolactone 25 mg tablet 25 mg PO DAILY 10/23/24 01/20/25 Previous Rx's ?Medication ?Instructions ?Recorded buspirone 5 mg tablet 5 mg PO BID PRN anxiety #30 tabs 07/18/24 Compression sleeve for right arm #1 ea 10/23/24 ketorolac 10 mg tablet 10 mg PO TID PRN pain #10 tabs 01/25/25 hydrocodone 7.5 mg-acetaminophen 1 tab PO BID pain 7 days #14 tabs 02/24/25 325 mg tablet amlodipine 10 mg tablet 10 mg PO DAILY #30 tabs 04/06/25 methylprednisolone 4 mg tablets in See Rx Instructions PO .COMPLEX 04/06/25 a dose pack (Medrol (Mihir)) #21 ea tranexamic acid 650 mg tablet 650 mg PO BID 3 days #6 tabs 04/06/25 Allergies Allergy/AdvReac Type Severity Reaction Status Date / Time No Known Allergies Allergy Verified 12/11/24 13:14 [facility] ED PFSH: Medical History Ascites of liver Social anxiety disorder Gastritis Hypertension NAYLA (generalized anxiety disorder) Social History Smoking and tobacco/nicotine status: unknown if used tobacco/nicotine Alcohol intake: current Alcohol intake frequency: 0-2 Drinks per Day Substance/Drug Use: never Physical Exam Const: COMMON NORMALS: no acute distress GENERAL APPEARANCE: cooperative; not ill appearing and not frail appearing HENMT: COMMON NORMALS: Normal external nose present FACE & SINUS: normal facial exam and face symmetric NOSE: Normal external nose present MOUTH: Normal oral and palatal mucosa present, tongue normal and lip abnormal (Significant swelling lower lip); no malodorous breath, no mouth trauma, no muffled voice and no trismus TEETH & GINGIVA: Yes fair dentition THROAT: posterior oropharynx normal Eye: COMMON NORMALS: Equal, round and reactive pupils present and EOMs intact bilaterally PUPIL: Yes Equal, round and reactive pupils present Neck/C-Spine: GENERAL: Yes trachea midline Chest: CHEST: Yes Symmetrical chest wall rise Resp: COMMON NORMALS: normal respiratory effort, No retractions, No use of accessory muscles and clear to auscultation bilaterally AUSCULTATION: clear to auscultation bilaterally Cardio: COMMON NORMALS: regular rate and regular rhythm RATE: regular rate RHYTHM: regular rhythm Neuro: BRITTNEE COMA SCALE: document GCS findings Brittnee coma scale eye opening: Spontaneous Cherokee coma scale verbal response: Orientated Cherokee coma scale motor response: Obey commands Cherokee coma scale total score: 15 SENSORY EXAM: Yes extremities (intact) Psych: COMMON NORMALS: speech normal SPEECH: Yes normal speech Skin: COMMON NORMALS: no rashes or lesions noted GENERAL SKIN EXAM: no rashes or lesions noted Course Vital Signs: Vital signs: Vital Signs Temperature 98.1 F 04/06/25 07:00 Pulse Rate 67 04/06/25 07:00 Respiratory Rate 14 04/06/25 07:00 Blood Pressure 150/94 04/06/25 07:00 Pulse Oximetry 99 04/06/25 07:00 Oxygen Delivery Me thod Room Air 04/06/25 06:00 MDM - Dental/Oral Medical Decision Making Patient presents with significant facial swelling. However, his tongue and posterior pharynx are not swollen. CT confirms this. There is no abscess. Simply facial edema. ESR and CRP are normal indicating this is a noninfectious/noninflammatory condition. He is not itching. There are no urticaria. The most likely causes NILDA inhibitor induced angioedema. He is given 2 units of FFP, and 1 g of tranexamic acid following steroids and Benadryl. He is beginning to improve at this point. Admission is warranted for further treatment. The patient declined admission, as he has obligations he cannot reconcile from inside the hospital today. He understands the risks of rebound swelling, and the potential of airway compromise and . He accepts these risks. Because he is reasonable, and is excepted the risks, he will not be forced to sign out AMA. We will treat with steroids, oral TXA. He will pick these up later today, and start them. He knows to return immediately for any rebound swelling or shortness of breath, etc. Lab Data 04/06/25 03:41 04/06/25 03:[address] 04/06/25 03:35 IMPRESSION: 1. Findings most consistent with severe perioral and left inferolateral facial cellulitis without evidence of drainable abscess. 2. 6.2 mm indeterminate left apical pulmonary nodule. For patients at low risk (minimal or absent history of smoking and of other known risk factors), recommend CT Chest at 6-12 months, then consider CT Chest at 18-24 months. For patients at high risk (history of smoking or of other known risk factors), recommend CT Chest at 6-12 months, then [address] Chest at 18-24 months. (Reference: [place]) References: [place] Soriano, et al. Guidelines for Management of Incidental Pulmonary Nodules Detected on CT Images: From the Fleischner Society 2017. Radiology. 2017;284(1):228-243. Laboratory Results WBC 5.59 10^3/uL (3.29-11.43) 04/06/25 03:41 RBC 3.71 10^6/uL (3.85-5.65) L 04/06/25 03:41 Hgb 12.50 g/dL (11.27-16.99) 04/06/25 03:41 Hct 36.8 % (37-53) L 04/06/25 03:41 MCV 99.2 fl (82-101) 04/06/25 03:41 MCH 33.7 pg (27-33) H 04/06/25 03:41 MCHC 34.0 g/dL (30-55) 04/06/25 03:41 RDW 14.0 % (12.1-15.1) 04/06/25 03:41 Plt Count 80 10^3/cmm (157-399) L 04/06/25 03:41 MPV 9.5 fL (7.4-10.4) 04/06/25 03:41 Neut % (Auto) 60.6 % 04/06/25 03:41 Lymph % (Auto) 27.4 % 04/06/25 03:41 Beadle % (Auto) 10.0 % 04/06/25 03:41 Eos % (Auto) 0.7 % 04/06/25 03:41 Baso % (Auto) 0.9 % 04/06/25 03:41 Neut # (Auto) 3.39 10^3/uL (1.8-7.7) 04/06/25 03:41 Lymph # (Auto) 1.5 10^3/uL (0.8-4.8) 04/06/25 03:41 Beadle # (Auto) 0.6 10^3/uL (0.2-0.9) 04/06/25 03:41 Eos # (Auto) 0.0 10^3/uL (0.0-0.8) 04/06/25 03:41 Baso # (Auto) 0.1 10^3/uL (0.0-0.1) 04/06/25 03:41 Nucleated RBC % (auto) 0 % 04/06/25 03:41 Nucleated RBCs # 0.0 /100WBC 04/06/25 03:41 ESR 8 mm/hr (0-10) 04/06/25 03:41 Sodium 135 mmol/L (136-145) L 04/06/25 03:41 Potassium 3.7 mmol/L (3.5-5.1) 04/06/25 03:41 Chloride 97 mmol/L (98-107) L 04/06/25 03:41 Carbon Dioxide 24 mmol/L (22-29) 04/06/25 03:41 Anion Gap 17.7 (5-19) 04/06/25 03:41 BUN 8 mg/dL (6-20) 04/06/25 03:41 Creatinine 0.6 mg/dL (0.7-1.2) L 04/06/25 03:41 GFR Calculation 143.8 mL/min (90-130) H 04/06/25 03:41 Glucose 94 mg/dL (65-115) 04/06/25 03:41 Calculated Osmolality 278 mOsm/kg (285-295) L 04/06/25 03:41 Calcium 8.8 mg/dL (8.5-10.5) 04/06/25 03:41 Total Bilirubin 1.0 mg/dL (0.15-1.2) 04/06/25 03:41 AST 259 U/L (0-40) H 04/06/25 03:41 ALT 51 U/L (0-41) H 04/06/25 03:41 Alkaline Phosphatase 119 U/L (40-130) 04/06/25 03:41 C-Reactive Protein 3.0 mg/L (0.0-4.9) 04/06/25 03:41 Total Protein 6.7 g/dL (6.6-8.7) 04/06/25 03:41 Albumin 3.9 g/dL (3.5-5.2) 04/06/25 03:41 Globulin 2.8 g/dL (1.3-4.6) 04/06/25 03:41 Blood Type A Positive 04/06/25 03:41 Rho(D) Type Rh positive 04/06/25 03:41 All radiology interpretation(s) finalized by discharge Critical Care Time Critical Care Time: Critical Care Time: Yes Total Critical Care Time: 35 Attestation: This case had a high probability of a clinically significant, sudden, or life threatening deterioration of this patient's condition which required my full and direct attention, intervention and personal management. Time is independent of any procedures performed. 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 Condition: Stable Prescriptions: New methylprednisolone [Medrol (Mihir)] 4 mg tablets,dose pack See Rx Instructions .ROUTE .COMPLEX Qty: 21 0RF Rx Instructions: orally per package directions tranexamic acid 650 mg tablet 650 mg PO BID 3 Days Qty: 6 0RF amlodipine 10 mg tablet 10 mg PO DAILY Qty: 30 0RF Discontinued lisinopril 10 mg tablet 10 mg PO DAILY Qty: 30 3RF No Action buspirone 5 mg tablet 5 mg PO BID PRN (Reason: anxiety) Qty: 30 0RF furosemide [Lasix] 40 mg tablet 40 mg PO DAILY spironolactone 25 mg tablet 25 mg PO DAILY (DME) Compression sleeve for right arm See Rx Instructions .Route .MEDSUPPLY Qty: 1 0RF Rx Instructions: As directed hydrocodone-acetaminophen 7.5-325 mg tablet 1 tab PO BID 7 Days Qty: 14 0RF ketorolac 10 mg tablet 10 mg PO TID PRN (Reason: pain) Qty: 10 0RF Discharge Orders: Discharge ED (Routine); Ordered 04/06/25 Ordered By: Serafin Smith Referrals: Tami Reilly FNP [Primary Care Provider, Nurse Practitioner] - 1-3 days Patient Instructions: Angioedema (ED), Opioid Safety, Pain Management, Patient Portal & Raman Instructions Activity Restrictions/Additional Instructions: Admission to the hospital was warranted, but you have chosen discharge due to other obligations. Stop your lisinopril. It is imperative that you do not restart this medication. Check your blood pressure twice daily, and if your blood pressure is high, you may start the medication for blood pressure prescribed, amlodipine. Medications have been sent to your pharmacy, should be filled by this afternoon, and started. Return immediately to the emergency department for any evidence of returning swelling, shortness of breath, choking, trouble swallowing, any other concerning symptoms. Follow-up with your doctor later this week. Call for a follow-up appointment. Print Language: Danish Coding Level of Care Code ED Airplane Gastank Liner Assembler for Neris Morris
[2025-04-06] MEDS: methylPREDNISolone sod succ 125 mg/2 mL INJ IVP (03:46)
[2025-04-06] MEDS: diphenhydrAMINE 50 mg/mL SDV 1mL IVP (03:47)
[2025-04-06] MEDS: iohexol 350 mg/mL 500 mL Btl (per mL) IV (03:53)
[2025-04-06 03:54] LABS: Hematocrit 36.8 % (37-53); Hemoglobin 12.50 g/dL (11.27-16.99); Mean Corpuscular HGB Conc 34.0 g/dL (30-55); Mean Corpuscular Hemoglobin 33.7 pg (27-33); Mean Corpuscular Volume 99.2 fl (82-101); Nucleated Red Blood Cells % 0 %; Platelet Count 80 10^3/cmm (157-399); Red Blood Count 3.71 10^6/uL (3.85-5.65); White Blood Count 5.59 10^3/uL (3.29-11.43)
[2025-04-06 04:07] LABS: Alanine Aminotransferase 51 U/L (0-41); Albumin Level 3.9 g/dL (3.5-5.2); Alkaline Phosphatase 119 U/L (40-130); Anion Gap 17.7 (5-19); Aspartate Amino Transferase 259 U/L (0-40); Blood Urea Nitrogen 8 mg/dL (6-20); Calcium 8.8 mg/dL (8.5-10.5); Carbon Dioxide 24 mmol/L (22-29); Chloride 97 mmol/L (98-107); Creatinine Clr Calc Pharmacy 167.5473; Globulin 2.8 g/dL (1.3-4.6); Glucose 94 mg/dL (65-115); Osmolality Calculated 278 mOsm/kg (285-295); Potassium 3.7 mmol/L (3.5-5.1); Sodium 135 mmol/L (136-145); Total Protein 6.7 g/dL (6.6-8.7)
[2025-04-06] MEDS: tranexamic acid 1,000 MG/100 ML PREMIX 600 MG IV (06:00)
== END 2025-04-06 07:44 | disposition home or self-care (01) ==
PROVIDERS: Emergency Provider Emergency Medicine; PCP Nurse Practitioner
DX: T78.3XXA Angioneurotic edema, initial encounter (principal); T46.4X5A Adverse effect of angiotensin-converting-enzyme inhibitors, initial encounter; X58.XXXA Exposure to other specified factors, initial encounter; I10 Essential (primary) hypertension
CPT/HCPCS: 36415; 36430; 70491; 80053; 85025; 85651; 86140; 86900; 86927; 96374; 96375; 99285; J1200; J2919; J7050; J9999; P9017

== ENCOUNTER → 2025-04-21 10:36 | Outpatient (BNVA) | payer BC, MEDICAID, SELFPAY | PROVIDERS: PCP Nurse Practitioner; Visit Provider Orthopaedic Surgery | DX: S42.292D Other displaced fracture of upper end of left humerus, subsequent encounter for fracture with routine healing (principal); X58.XXXD Exposure to other specified factors, subsequent encounter | CPT/HCPCS: 73030 ==

== ENCOUNTER 2025-05-21 00:07 | Emergency (ER) | payer BC, MEDICAID, SELFPAY ==
--- OUTSIDE RECORDS SUMMARY | 2024-08-19 08:50 | XMS_ITS ---
Author Organization [facility] Address [address] [place] [address] Care Team Providers Care Rn Transitional Name Role Phone Karri Gandhi Unavailable [phone] Allergies Allergen (clinical drug ingredient) Drug/Non Drug [...] End Date Status Clindamycin HCl 300 MG Capsule 1 capsule Orally every 12 hrs; Duration: 7 days Post SCS Trial 08/19/2024 08/26/2024 Active Encounters Encounter Location Date Provider Diagnosis [facility] [place] [address] [place] [address] 08/19/2024 Karri Gandhi Chronic pain disorder G89.4 Assessments Encounter Date Diagnosis (ICD Code) Assessment Notes Treatment Notes Treatment Clinical Notes Section Notes 08/19/2024 Chronic pain disorder (ICD-10 - G89.4) Plan Of Treatment Medication Medication Name Sig Start Date Stop Date Notes Clindamycin HCl 300 MG Capsule 1 capsule Orally every 12 hrs; Duration: 7 days 08/19/2024 08/26/2024 Post SCS Trial History and Physical Notes * HPI (History of Present Illness) Category Sub-Category Detail Notes Category Not es Right shoulder Provider Note Colonoscopy Mammogram Bone Mineral Density Test Progress Notes * OBDULIO BUTLER II PDOB:[birth year] (49 yo M)Acc No.[id number]:08/19/2024 Patient: OBDULIO ZAVALETA II Provider: Chaim Gandhi D.O. 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 C hronic pain disorder - G89.4 (Primary) Plan: * Treatment: * Electronic signature of Karri Gandhi DO on 05/21/2025 at 12:11 AM CDT Sign off status: Pending * Provider: Chaim Gandhi D.O. Date: 10/19/2023 Generated for Elpidio perez/Litzy/Lisbeth on: 0 05/21/2025 12:11 AM CDT
--- NOTE | 2025-05-21 00:08 | XRR_ITS ---
PROCEDURE INFORMATION: Exam: XR Right Ankle Exam date and time: 05/21/2025 1:03 AM Age: 49 years old Clinical indication: Injury or trauma; Fall; Swelling (edema); Ankle; Right; Additional info: Ankle injury TECHNIQUE: Imaging protocol: Radiologic exam of the right ankle. Views: 3 or more views. COMPARISON: CR (LOW EXM, ) 05/21/2025 1:03 AM FINDINGS: Bones/joints: Mildly displaced obliquely oriented fracture of the distal fibular metaphysis. There appears to be likely articular surface involvement. Trace joint effusion. Soft tissues: Significant soft tissue swelling laterally. XR/XR ankle RT min 3V* [id number] IMPRESSION: Minimally displaced distal fibular fracture with significant soft tissue swelling.
--- OUTSIDE RECORDS SUMMARY | 2025-05-21 00:11 | XMS_ITS | Encounter Summary ---
Author Organization [facility] Address [address] [place] [address] Care Team Providers Care Card Brusher Name Role Phone Unavailable Primary Care Provider Unavailabl e Encounter Details Date Type Department Care Team (Latest Contact Info) Description 12/20/2018 Ancillary Orders [facility] Occupational Medicine [place] [address] [place] [address] Huey Ragland MD [address] [facility] [place] [address] Acute pain of right shoulder; Encounter related to worker's compensation claim Social History Tobacco Use Types Packs/Day Years Used Date Smoking Tobacco: Every Day Sex and Gender Information Value Date Recorded Sex Assigned at Not on file 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
--- OUTSIDE RECORDS SUMMARY | 2025-05-21 00:11 | XMS_ITS | Clinical Summary ---
Author Organization [facility] Address [address] [facility] Attn: Epic Prelude ADT [place]TE[place] DAVISON [address] Care Team Providers Care Noteman Name Role Phone Unavailable Primary Care Provider [...] Encounters Date Type Department Care Team Description 05/05/2025 Refill [facility] Gastroenterology- [place] [id number] [facility] [address] [place] [id number] Dez Munoz, 04/28/2025 External Device Data STL ABSTRACTION Provider, Abstract 04/28/2025 External Device Data STL ABSTRACTION Provider, Abstract 04/21/2025 External Device Data STL ABSTRACTION Provider, Abstract 03/24/2025 External Device Data STL ABSTRACTION Provider, [...] 0.6 oz pur e alcohol) daily drinker Sex and Gender Information Value Date Recorded Sex Assigned at Not on file 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 Gender Identity Not on file Sexual Orientation Not on file Last Filed Vital Signs Vital Sign Reading Time Taken Comments Blood Pressure 138/68 12/23/2024 1:50 PM CDT Pulse 64 12/23/2024 1:50 PM CDT Temperature 36.9 C (98.4 F) 08/18/2024 1:31 PM MELTER OPERATOR Respiratory Rate 18 11/14/2024 1:28 PM MELTER OPERATOR Oxygen Saturation 99% 11/14/2024 1:32 PM MELTER OPERATOR Inhaled Oxygen Concentration - - Weight 83 kg (183 lb) 12/23/2024 1:50 PM CDT Height 182.9 cm (6') 12/23/2024 1:50 PM CDT Body Mass Index 24.82 12/23/2024 1:50 PM CDT Plan of Treatment Upcoming Encounters Date Type Department Care Team (Late st Contact Info) Description 06/08/2025 Orders Only [facility] [address] [address] Dez Munoz DO [address] [facility] [address] [place] [address] Alcoholic cirrhosis of liver with ascites (CMS/HCC); Abnormal LFTs (liver function tests); Hepatic cirrhosis, unspecified hepatic cirrhosis type, unspecified whether ascites present (CMS/HCC) 07/29/2025 2:30 PM CDT Office [facility] [address] [address] Homero Manzano MD [address] [place] [address] Health Maintenance Due Date Last Done Comments DTAP/TDAP/TD VACCINES (1 - Tdap) 1995 HEPATITIS B VACCINES (1 of 3 - 19+ 3-dose series) 1995 FIT-DNA Q 3 years 2021 FIT/FOBT Q 1 year 2021 Flex Sig/CT Colonography Q 5 years 2021 INFLUENZA VACCINE (#1) 2025 COLORECTAL SCREENING 11/14/2034 11/14/2024, 11/14/19 25 Colorectal Cancer Screening 11/14/2034 Procedures Procedure Name Priority Date/Time Associated Diagnosis Comments COLONOSCOPY REPORT 11/14/2024 1: 18 PM MELTER OPERATOR from Last 3 Months or Most Recently Relevant to Health Maintenance Results * COLONOSCOPY REPORT (11/14/2024 1:18 PM MELTER OPERATOR) Narrative Procedure Note Dez Munoz DO - 11/14/2024 1:18 PM CST [facility] GI Patient Name: Urban Lucas Procedure [...] This is a 48 year old male. [address] [place] [address] Dez Munoz DO GI PROCEDURE ORDERABLES Final Result from Last 3 Months or Most Recently Relevant to Health Maintenance Insurance REPLACED BY [facility]ICA[facility]
--- OUTSIDE RECORDS SUMMARY | 2025-05-21 00:11 | XMS_ITS | Encounter Summary ---
Author Organization [facility] Address [address] [place] [address] Care Team Providers Care Executive Relations Specialist Name Role Phone Unavailable Primary Care Provider Unavailabl e Reason for Visit * Reason Comments Med Refill Encounter Details Date Type Department Care Team (Late Contact Info) Description 05/05/2025 Refill [facility] [address] [address] Dez Munoz DO [address] [address] Social History Tobacco Use Types Packs/Day Years Used Date Smoking Tobacco: Every Day Cigarettes Alcohol Use Standard Drinks/Week Comments Yes 0 (1 standard drink = 0.6 oz pur e alcohol) daily drinker Sex and Gender Information Value Date Recorded Sex Assigned at Not on file 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 [facility] [address] [place] [address] Homero Manzano MD [address] [facility] [address] [place] [address] documented as of this encounter Visit Diagnoses Not on filedocumented in this encounter
--- OUTSIDE RECORDS SUMMARY | 2025-05-21 00:12 | XMS_ITS | Clinical Summary ---
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
--- OUTSIDE RECORDS SUMMARY | 2025-05-21 00:12 | XMS_ITS | Patient Health Record ---
Author Organization [facility] Address [address] [place] [address] Care Team Providers Care Gang Knife Fish Chopper Name Role Phone Karri Gandhi Unavailable [phone] Allergies Allergen (clinical drug ingredient) Drug/Non Drug Allergy documented on EMR Reaction Allergy Type Onset Date Status shrimp allergenic extract Shrimp (Diagnostic) nausea and vomiting Drug Allergy Active Non-steroidal anti-inflammatory agent (FN) NSAIDs stomach upset Drug Allergy Active Penicillin rash Drug Allergy Active Reason For Referral No Information Social History Social History Additional Details Category Social Info Options Details zzMigrated Social History Migrated Social History Smoking Status:Smokes tobacco daily (finding) Problems Problem Type SNOMED Code ICD Code Onset Dates Problem Status W/U Status Risk Notes Problem Chronic pain syndrome (411012911) Chronic pain disorder (G89.4) Active confirmed Problem Failed back syndrome (11364746) Failed back syndrome (M96.1) Active confirmed Plan Of Treatment No Information Insurance Providers Payer Name Payer Address Payer Phone Subscriber Number Group Number Insured Name Patient Relationship to Insured Coverage Start Date Coverage End Date [employer] [address] [place] [phone] [id number] OBDULIO BUTLER II Self - patient is the insured Medical (General) History Medical History History ICD Code Problem:Tobacco user (finding) , Status :: Active
--- NOTE | 2025-05-21 00:17 | XRR_ITS ---
PROCEDURE INFORMATION: Exam: XR Right Knee Exam date and time: 05/21/2025 1:03 AM Age: 49 years old Clinical indication: Injury or trauma; Fall; Swelling (edema); Knee; Right TECHNIQUE: Imaging protocol: Radiologic exam of the right knee. Views: 3 views. COMPARISON: CR XR ankle RT min 3V* [id number] 05/21/2025 1:03 AM FINDINGS: Bones/joints: No acute fracture or dislocation is identified. Trace joint effusion. Soft tissues: Unremarkable. XR/XR knee RT 3V* [id number] IMPRESSION: No acute fracture or dislocation.
--- NOTE | 2025-05-21 00:18 | CTR_ITS ---
PROCEDURE INFORMATION: Exam: CT Cervical Spine Without Contrast Exam date and time: 05/21/2025 1:15 AM Age: 49 years old Clinical indication: Injury or trauma; Fall; Concussion/head injury; Additional info: Fall, neck injury TECHNIQUE: Imaging protocol: Computed tomography of the cervical spine without contrast. Radiation optimization: All CT scans at this facility use at least one of these dose optimization techniques: automated exposure control; mA and/or kV adjustment per patient size (includes targeted exams where dose is matched to clinical indication); or iterative reconstruction. COMPARISON: CT cervical spin wo con* [id number] 01/25/2025 12:56 AM RADIATION DOSE METRICS: Total DLP (mGy-cm): 185.6 FINDINGS: Bones: No acute fracture of the cervical spine. Grossly normal alignment. Multilevel degenerative change including some trace dorsal spondylosis most prominent at C4-C5 and C5-C6. No severe central spinal canal stenosis. Multilevel facet arthropathy bilaterally. Lungs: Lung apices reveal paraseptal emphysematous changes and scarring. Soft tissues: Unremarkable. CT/CT cervical spin wo con* [id number] IMPRESSION: No cervical spine fracture is identified.
--- NOTE | 2025-05-21 00:18 | CTR_ITS ---
PROCEDURE INFORMATION: Exam: CT Head Without Contrast Exam date and time: 05/21/2025 1:15 AM Age: 49 years old Clinical indication: Injury or trauma; Fall; Concussion/head injury; Additional info: Fall with altered mentation TECHNIQUE: Imaging protocol: Computed tomography of the head without contrast. Radiation optimization: All CT scans at this facility use at least one of these dose optimization techniques: automated exposure control; mA and/or kV adjustment per patient size (includes targeted exams where dose is matched to clinical indication); or iterative reconstruction. COMPARISON: CT head wo con* [id number] 01/25/2025 12:53 AM RADIATION DOSE METRICS: Total DLP (mGy-cm): 1058.76 FINDINGS: Brain: No acute infarction, hemorrhage, mass, or extra-axial fluid collection is identified. No midline shift. Chronic white matter microangiopathy and generalized atrophy are present. Cerebral ventricles: No hydrocephalus. Paranasal sinuses: Few inferior right mastoid air cells are opacified. Left mastoid air cells are grossly clear. Mastoid air cells: Mastoid air cells are grossly clear. Bones: Calvarium appears intact. Soft tissues: Unremarkable. CT/CT head wo con* [id number] IMPRESSION: No acute intracranial abnormality.
[2025-05-21 00:19] VITALS: BP 139/89; PULSE 99; RESP 16; TEMP 36.8; O2SAT 97; BMI 23.3
--- NOTE | 2025-05-21 00:19 | W.ED.FALL ---
Documented by User: JIN White 05/25/25 18:39 HPI - Fall General: Chief Complaint: Fall Stated Complaint: FALL, RIGHT ANKLE INJURY Time Seen by Provider: 05/21/25 00:08 History of Present Illness: Patient is a 49-year-old gentleman history of hypertension, alcoholism, presents to ED after having a few shots of whiskey, twisted tea, presents to the ED with contusion to right ankle, presents to ED with contusion of right ankle, right knee, and cervical neck tenderness. He did refuse c-collar per EMS. Denies any altered mentation. He is notable with alcohol on board. Associated symptoms-after fall: Reports neck pain; Denies abdominal pain, chest pain or headache(s) Related Data Home Medications ?Medication ?Instructions ?Recorded ?Confirmed furosemide 40 mg tablet (Lasix) 40 mg PO DAILY 09/18/24 05/01/25 spironolactone 25 mg tablet 25 mg PO DAILY 10/23/24 05/01/25 Previous Rx's ?Medication ?Instructions ?Recorded buspirone 5 mg tablet 5 mg PO BID PRN anxiety #30 tabs 07/18/24 Compression sleeve for right arm #1 ea 10/23/24 amlodipine 10 mg tablet 10 mg PO DAILY #30 tabs 04/06/25 hydrocodone 5 mg-acetaminophen 325 1 tab PO TID pain 10 days #30 tabs 04/21/25 mg tablet doxepin 25 mg capsule 25 mg PO BEDTIME PRN insomnia #30 05/01/25 caps tizanidine 2 mg tablet See Rx Instructions .Route 05/19/25 .COMPLEX #14 tabs methocarbamol 500 mg tablet 500 mg PO Q8H PRN muscle spasm #30 05/21/25 tabs Allergies Allergy/AdvReac Type Severity Reaction Status Date / Time lisinopril Allergy ALGY-Swell Verified 04/21/25 12:58 Lip/Tongue/Throat Review of Systems Const: Denies: fever(s), chills, change in weight, fatigue or night sweats Eyes: Denies: change in vision ENMT: Denies: throat pain Card: Denies: chest pain, swelling of feet/ankles or dyspnea on exertion Resp: Denies: dyspnea or productive cough GI: Denies: abdominal pain or change in bowel habits Musc: Reports: neck pain, extremity pain, extremity swelling, joint pain, joint swelling, joint stiffness, limited range of motion and muscle cramps; Denies: back pain or joint redness Skin/Breast: Denies: rash Neuro: Denies: headache(s), numbness in extremities or weakness in extremities Psych: Denies: anxiety or depression Endo: Denies: polyuria, polydipsia or tired all the time Armando/Lymph: Denies: easy bruising All/Imm: Denies: urticaria or throat swelling PFSH ED PFSH: Medical History (Updated 05/21/25 @ 01:22 by JIN White) Ascites of liver Social anxiety disorder Gastritis Hypertension NAYLA (generalized anxiety disorder) Social History Smoking and tobacco/nicotine status: former use of tobacco/nicotine Alcohol intake: current Alcohol intake frequency: 0-2 Drinks per Day Substance/Drug Use: never Physical Exam Const: COMMON NORMALS: no acute distress, average body habitus, patient oriented x3 and alert HENMT: COMMON NORMALS: normocephalic and atraumatic HEAD & SCALP: normocephalic and atraumatic Eye: COMMON NORMALS: Equal, round and reactive pupils present and EOMs intact bilaterally PUPIL: Yes Equal, round and reactive pupils present Neck/C-Spine: COMMON NORMALS: full ROM CERVICAL SPINE: Yes pain with cervical ROM Chest: COMMONS NORMALS: normal inspection of the chest and normal palpation of entire chest wall Resp: COMMON NORMALS: normal respiratory effort, No retractions and clear to auscultation bilaterally AUSCULTATION: clear to auscultation bilaterally Cardio: COMMON NORMALS: regular rate and regular rhythm RATE: regular rate RHYTHM: regular rhythm GI: COMMON NORMALS: Normal to inspection, nondistended, normoactive bowel sounds present, Soft to palpation and non-tender PALPATION: Yes Soft to palpation : COMMON NORMALS: Yes no CVA tenderness BLADDER/KIDNEY EXAM: Yes no CVA tenderness Back/Pelvis: COMMON NORMALS: no CVA tenderness and thoracic and lumbar spine normal to inspection Extremity: RIGHT LOWER EXTREMITY: Yes knee joint Right knee: Yes palpation (pain tibia plateau) and Yes lower leg Right lower leg: Yes inspection (edema laterally) Neuro: COMMON NORMALS: patient oriented x3 SENSORIUM/ORIENTATION: Yes alert Psych: COMMON NORMALS: mental status grossly normal, Normal thought process present, cooperative and normal affect THOUGHT PROCESS: Normal thought process present Skin: COMMON NORMALS: no rashes or lesions noted and no wounds GENERAL SKIN EXAM: no rashes or lesions noted Course Vital Signs: Vital signs: Vital Signs Temperature 98.3 F 05/21/25 00:19 Pulse Rate 99 05/21/25 00:19 Respiratory Rate 16 05/21/25 00:19 Blood Pressure 139/89 05/21/25 00:19 Pulse Oximetry 97 05/21/25 00:19 Oxygen Delivery Me thod Room Air 05/21/25 00:19 MDM - Fall Medical Decision Making Patient is a 49-year-old gentleman that has notable alcohol on board, and he states a very little amount compared to what he normally drinks. In any event, he has contusion to right ankle, tenderness to right tibial plateau, and cervical neck tenderness. He did refuse cervical neck collar as per EMS. Will check head and neck given the circumstances. He is not on anticoagulation. Lab Data Radiology Impressions Ankle X-Ray 05/21/25 00:08 IMPRESSION: Minimally displaced distal fibular fracture with significant soft tissue swelling. Knee X-Ray 05/21/25 00:17 IMPRESSION: No acute fracture or dislocation. Cervical Spine CT 05/21/25 00:18 IMPRESSION: No cervical spine fracture is identified. Head CT 05/21/25 00:18 IMPRESSION: No acute intracranial abnormality. All radiology interpretation(s) finalized by discharge Discharge Plan Discharge Patient Disposition: Home Clinical Impression: Closed right fibular fracture Qualifiers: Encounter type: initial encounter Fibula location: lateral malleolus Fracture alignment: nondisplaced Qualified Code(s): S82.64XA - Nondisplaced fracture of lateral malleolus of right fibula, initial encounter for closed fracture Condition: Stable Prescriptions: New methocarbamol 500 mg tablet 500 mg PO Q8H PRN (Reason: muscle spasm) Qty: 30 0RF No Action buspirone 5 mg tablet 5 mg PO BID PRN (Reason: anxiety) Qty: 30 0RF furosemide [Lasix] 40 mg tablet 40 mg PO DAILY spironolactone 25 mg tablet 25 mg PO DAILY (DME) Compression sleeve for right arm See Rx Instructions .Route .MEDSUPPLY Qty: 1 0RF Rx Instructions: As directed hydrocodone-acetaminophen 5-325 mg tablet 1 tab PO TID 10 Days Qty: 30 0RF doxepin 25 mg capsule 25 mg PO BEDTIME PRN (Reason: insomnia) Qty: 30 0RF tizanidine 2 mg tablet See Rx Instructions .ROUTE .COMPLEX Qty: 14 0RF Dose Instruction: TAKE 1 TABLET BY MOUTH DAILY NEEDED FOR MUSCLE SPASTICITY Rx Instructions: TAKE 1 TABLET BY MOUTH DAILY NEEDED FOR MUSCLE SPASTICITY amlodipine 10 mg tablet 10 mg PO DAILY Qty: 30 0RF Discharge Orders: Discharge ED (Routine); Ordered 05/21/25 Ordered By: Jean Philip Referrals: Tami Reilly FNP [Primary Care Provider, Nurse Practitioner] Urban Sy MD [Physician, Orthopedics] Discharge Diet: Usual diet Discharge Activity: Limit activity as instructed Patient Instructions: Fall Prevention (ED), Patient Portal & Raman Instructions Activity Restrictions/Additional Instructions: You have a nonweightbearing fracture. You will require utilizing your crutches at all time and not bearing any weight on this right foot. Call Dr. Sy's office for follow-up tomorrow. You will need to follow-up next week. Print Language: Divehi Coding Level of Care Code ED Finishing Area Operator for Chg Fwd Documented by User: Jean Philip MD 05/21/25 01:49 HPI - Fall General: Chief Complaint: Fall Stated Complaint: FALL, RIGHT ANKLE INJURY Time Seen by Provider: 05/21/25 00:08 Related Data Home Medications ?Medication ?Instructions ?Recorded ?Confirmed furosemide 40 mg tablet (Lasix) 40 mg PO DAILY 09/18/24 05/01/25 spironolactone 25 mg tablet 25 mg PO DAILY 10/23/24 05/01/25 Previous Rx's ?Medication ?Instructions ?Recorded buspirone 5 mg tablet 5 mg PO BID PRN anxiety #30 tabs 07/18/24 Compression sleeve for right arm #1 ea 10/23/24 amlodipine 10 mg tablet 10 mg PO DAILY #30 tabs 04/06/25 hydrocodone 5 mg-acetaminophen 325 1 tab PO TID pain 10 days #30 tabs 04/21/25 mg tablet doxepin 25 mg capsule 25 mg PO BEDTIME PRN insomnia #30 05/01/25 caps tizanidine 2 mg tablet See Rx Instructions .Route 05/19/25 .COMPLEX #14 tabs methocarbamol 500 mg tablet 500 mg PO Q8H PRN muscle spasm #30 05/21/25 tabs Allergies Allergy/AdvReac Type Severity Reaction Status Date / Time lisinopril Allergy ALGY-Swell Verified 04/21/25 12:58 Lip/Tongue/Throat [facility] ED PFSH: Medical History (Updated 05/21/25 @ 01:22 by JIN White) Ascites of liver Social anxiety disorder Gastritis Hypertension NAYLA (generalized anxiety disorder) Social History Smoking and tobacco/nicotine status: former use of tobacco/nicotine Alcohol intake: current Alcohol intake frequency: 0-2 Drinks per Day Substance/Drug Use: never Course Vital Signs: Vital signs: Vital Signs Temperature 98.3 F 05/21/25 00:19 Pulse Rate 99 05/21/25 00:19 Respiratory Rate 16 05/21/25 00:19 Blood Pressure 139/89 05/21/25 00:19 Pulse Oximetry 97 05/21/25 00:19 Oxygen Delivery Me thod Room Air 05/21/25 00:19 MDM - Fall Medical Decision Making Patient is a 49-year-old gentleman that has notable alcohol on board, and he states a very little amount compared to what he normally drinks. In any event, he has contusion to right ankle, tenderness to right tibial plateau, and cervical neck tenderness. He did refuse cervical neck collar as per EMS. Will check head and neck given the circumstances. He is not on anticoagulation. There is a minimally displaced distal right fibula fracture. Patient was placed in a posterior splint for the. X-rays of the knee were read by the radiologist as normal. Head CT and cervical spine CTs were read by the radiologist as normal. Patient was discharged in stable condition following splinting. Lab Data Radiology Impressions Ankle X-Ray 05/21/25 00:08 IMPRESSION: Minimally displaced distal fibular fracture with significant soft tissue swelling. Knee X-Ray 05/21/25 00:17 IMPRESSION: No acute fracture or dislocation. Cervical Spine CT 05/21/25 00:18 IMPRESSION: No cervical spine fracture is identified. Head CT 05/21/25 00:18 IMPRESSION: No acute intracranial abnormality. Discharge Plan Discharge Patient Disposition: Home Clinical Impression: Closed right fibular fracture Qualifiers: Encounter type: initial encounter Fibula location: lateral malleolus Fracture alignment: nondisplaced Qualified Code(s): S82.64XA - Nondisplaced fracture of lateral malleolus of right fibula, initial encounter for closed fracture Condition: Stable Prescriptions: New methocarbamol 500 mg tablet 500 mg PO Q8H PRN (Reason: muscle spasm) Qty: 30 0RF No Action buspirone 5 mg tablet 5 mg PO BID PRN (Reason: anxiety) Qty: 30 0RF furosemide [Lasix] 40 mg tablet 40 mg PO DAILY spironolactone 25 mg tablet 25 mg PO DAILY (DME) Compression sleeve for right arm See Rx Instructions .Route .MEDSUPPLY Qty: 1 0RF Rx Instructions: As directed hydrocodone-acetaminophen 5-325 mg tablet 1 tab PO TID 10 Days Qty: 30 0RF doxepin 25 mg capsule 25 mg PO BEDTIME PRN (Reason: insomnia) Qty: 30 0RF tizanidine 2 mg tablet See Rx Instructions .ROUTE .COMPLEX Qty: 14 0RF Dose Instruction: TAKE 1 TABLET BY MOUTH DAILY NEEDED FOR MUSCLE SPASTICITY Rx Instructions: TAKE 1 TABLET BY MOUTH DAILY NEEDED FOR MUSCLE SPASTICITY amlodipine 10 mg tablet 10 mg PO DAILY Qty: 30 0RF Discharge Orders: Discharge ED (Routine); Ordered 05/21/25 Ordered By: Jean Philip Referrals: Tami Reilly FNP [Primary Care Provider, Nurse Practitioner] Urban Sy MD [Physician, Orthopedics] Discharge Diet: Usual diet Discharge Activity: Limit activity as instructed Patient Instructions: Fall Prevention (ED), Patient Portal & Raman Instructions Activity Restrictions/Additional Instructions: You have a nonweightbearing fracture. You will require utilizing your crutches at all time and not bearing any weight on this right foot. Call Dr. Sy's office for follow-up tomorrow. You will need to follow-up next week. Print Language: Divehi Coding Level of Care Code ED Finishing Area Operator for Neris Morris
== END 2025-05-21 02:20 | disposition home or self-care (01) ==
PROVIDERS: Emergency Provider Physician Assistant; PCP Nurse Practitioner
DX: S82.64XA Nondisplaced fracture of lateral malleolus of right fibula, initial encounter for closed fracture (principal); Z87.891 Personal history of nicotine dependence; I10 Essential (primary) hypertension; S80.01XA Contusion of right knee, initial encounter; X58.XXXA Exposure to other specified factors, initial encounter
CPT/HCPCS: 29515; 70450; 72125; 73562; 73610; 99284

== ENCOUNTER → 2025-06-08 09:49 | Outpatient (BNVA) | payer BC, MEDICAID, SELFPAY | PROVIDERS: PCP Nurse Practitioner; Visit Provider Podiatrist Foot & Ankle Surgery | DX: S82.831A Other fracture of upper and lower end of right fibula, initial encounter for closed fracture (principal); X58.XXXA Exposure to other specified factors, initial encounter | CPT/HCPCS: 73610 ==

== ENCOUNTER → 2025-06-11 08:09 | Outpatient (BNVA) | payer BC, MEDICAID, SELFPAY | PROVIDERS: PCP Nurse Practitioner; Visit Provider Orthopaedic Surgery | DX: S42.292D Other displaced fracture of upper end of left humerus, subsequent encounter for fracture with routine healing (principal); X58.XXXD Exposure to other specified factors, subsequent encounter | CPT/HCPCS: 73030 ==

== ENCOUNTER → 2025-07-06 10:53 | Outpatient (BNVA) | payer BC, MEDICAID, SELFPAY | PROVIDERS: PCP Nurse Practitioner; Visit Provider Podiatrist Foot & Ankle Surgery | DX: S82.831A Other fracture of upper and lower end of right fibula, initial encounter for closed fracture (principal); X58.XXXA Exposure to other specified factors, initial encounter | CPT/HCPCS: 73610 ==

== ENCOUNTER → 2025-07-20 10:24 | Outpatient (BNVA) | payer BC, MEDICAID, SELFPAY | PROVIDERS: PCP Nurse Practitioner; Visit Provider Podiatrist Foot & Ankle Surgery | DX: S82.831A Other fracture of upper and lower end of right fibula, initial encounter for closed fracture (principal); X58.XXXA Exposure to other specified factors, initial encounter; Z91.199 Patient's noncompliance with other medical treatment and regimen due to unspecified reason | CPT/HCPCS: 73610 ==

== ENCOUNTER → 2025-08-10 10:53 | Outpatient (BNVA) | payer BC, MEDICAID, SELFPAY | PROVIDERS: PCP Nurse Practitioner; Visit Provider Podiatrist Foot & Ankle Surgery | DX: S82.831A Other fracture of upper and lower end of right fibula, initial encounter for closed fracture (principal); Z91.199 Patient's noncompliance with other medical treatment and regimen due to unspecified reason; X58.XXXA Exposure to other specified factors, initial encounter | CPT/HCPCS: 73610 ==

== ENCOUNTER → 2025-08-31 10:48 | Outpatient (BNVA) | payer BC, MEDICAID, SELFPAY | PROVIDERS: PCP Nurse Practitioner; Visit Provider Podiatrist Foot & Ankle Surgery | DX: S82.831A Other fracture of upper and lower end of right fibula, initial encounter for closed fracture (principal); X58.XXXA Exposure to other specified factors, initial encounter; Z91.199 Patient's noncompliance with other medical treatment and regimen due to unspecified reason | CPT/HCPCS: 73610 ==